=== PATIENT | female | born 1985 | race Caucasian/White ===

== ENCOUNTER 2025-01-28 19:46 | Emergency (ER) | payer OTHER ==
[~2025-01-28] VITALS: Ht 165.1 cm; Wt 63.5 kg
[2025-01-28 21:10] LABS: PLATELET COUNT (AUTO) 316 K/uL (150-450); RED BLOOD CELL COUNT(AUTO) 5.00 MIL/uL (4.0-5.2); RED CELL DISTRIBUTION WIDTH 13.4 % (11.5-15.0); WHITE BLOOD COUNT (AUTO) 13.1 K/uL (4.3-11.0)
[2025-01-28 21:11] LABS: APPEARANCE,URINE CLEAR (CLEAR); BLOOD, URINE NEGATIVE Ery/uL (NEGATIVE); LEUKOCYTE ESTERASE ,URINE NEGATIVE (NEGATIVE); NITRITE, URINE NEGATIVE (NEGATIVE); UGLUCOSE NEGATIVE (NEGATIVE)
[2025-01-28 21:15] LABS: PREGNANCY TEST URINE QUAL NEGATIVE (NEGATIVE)
[2025-01-28 21:20] LABS: CALCIUM, SERUM 9.1 mg/dL (8.5-10.1); CREATININE 0.8 mg/dL (0.6-1.3); SODIUM SERUM 136.0 mmol/L (136-145); UREA NITROGEN, BLOOD 11.0 mg/dL (7-18)
[2025-01-28 21:26] LABS: ASPARTATE AMINOTRANSFERASE 18.0 U/L (15-37); TOTAL PROTEIN, SERUM 7.5 g/dL (6.4-8.2)
[2025-01-28] MEDS ORDERED: ONDANSETRON HCL/PF 4 MG/2 ML VIAL ONE (21:30)
[2025-01-28] MEDS ORDERED: KETOROLAC TROMETHAMINE 15 MG/ML VIAL ONE (21:30)
[2025-01-28] MEDS: ONDANSETRON HCL/PF - ER 4 MG/2 ML VIAL IV ONE (21:46)
[2025-01-28] MEDS: KETOROLAC TROMETHAMINE 15 MG/ML VIAL IV ONE (21:46)
[2025-01-28] MEDS: IV NS 0.9% 1,000 ML BAG IV ONE (21:46)
[2025-01-28] MEDS ORDERED: ONDA4TAB5 PO (22:08)
[2025-01-28] MEDS ORDERED: KETO10TA2 PO (22:08)
[2025-01-28] MEDS ORDERED: TAMS-12 PO (22:08)
[2025-01-28] MEDS ORDERED: IV NS 0.9% 250 ML IV ONE (22:10)
[2025-01-28] MEDS ORDERED: CT SWABBABLE VALVE TRANS SET 1 EA INFUS.SET MC ONE (22:10)
[2025-01-28] MEDS ORDERED: IOHEXOL-300 100 ML VIAL IV ONE (22:10)
[2025-01-28 23:51] VITALS: BP 128/89; TEMP 98.4; O2SAT 98
== END 2025-01-28 23:51 | disposition home or self-care (01) ==
LOC: ER 19:49
DX: R10.9 Unspecified abdominal pain (principal); R30.0 Dysuria; R50.9 Fever, unspecified
CPT/HCPCS: 99285; 74177; 96374; 96361; 96375; 85025; 84703; 81003; 36415; 80053; J1885; J2405; J7030; J7050; Q9967